=== PATIENT | female | born 1970 | race Caucasian/White ===

== ENCOUNTER → 2020-12-02 | Outpatient (CLI) | payer BC ==
--- NOTE | 2020-12-02 13:31 | MM ---
Reason for exam: clinical finding. Last mammogram was performed 5 years and 8 months ago. History: Family history of breast cancer in mother at age 68. Indicated problem(s): lump or thickening in the right breast. Physical Findings: Nurse Summary: 1cm nodule in the left breast at 9 o'clock (nurse mj). [facility] Diagnostic Mammo w CAD [facility]IS Bilateral CC and MLO view(s) were taken. Prior study comparison: March 24, 2015, bilateral MG diagnostic mammo w CAD CHRIS. September 02, 2012, mammogram, performed at [facility]. The breast tissue is heterogeneously dense. This may lower the sensitivity of mammography. Left palpable marker at 9 o'clock. No significant new findings when compared with previous films. These results were verbally communicated with the patient and result sheet given to the patient on 12/02/20. ASSESSMENT: Incomplete: need additional imaging evaluation, BI-RAD 0 RECOMMENDATION: Ultrasound of both breasts. (right 12 o'clock patient palpated, left 9 o'clock nurse palpated)
--- NOTE | 2020-12-02 13:37 | USB ---
Reason for exam: additional evaluation requested from abnormal screening. History: Family history of breast cancer in mother at age 68. US Breast Limited BILAT Right limited breast ultrasound including focal area of concern, retroareolar and axilla demonstrates right dense tissue seen, duct ectasia at the posterior nipple and a 1.0 x 1.1 x 0.9cm lymph node at the axilla. Left limited breast ultrasound including focal area of concern, retroareolar and axilla demonstrates a 0.5 x 0.4 x 0.5cm oval, solid, hyperechoic lesion at 9 o'clock, suggestive of a benign lipoma. Right scanned 11-1 o'clock. Left scanned 9 o'clock nurse palpated area. These results were verbally communicated with the patient and result sheet given to the patient on 12/02/20. ASSESSMENT: Benign, BI-RAD 2 RECOMMENDATION: Routine screening mammogram of both breasts in 1 year. Manage on a clinical basis with regard to any suspicious palpable abnormality.
== END | disposition home or self-care (01) ==
LOC: RADMAMWWP 09:36
PROVIDERS: ATTEND Family Medicine
DX: N63.10 Unspecified lump in the right breast, unspecified quadrant (principal); N63.20 Unspecified lump in the left breast, unspecified quadrant; R92.8 Other abnormal and inconclusive findings on diagnostic imaging of breast
CPT/HCPCS: 77066

== ENCOUNTER → 2023-06-26 | Outpatient (CLI) | payer BC ==
--- NOTE | 2023-06-27 15:49 | MM ---
Reason for Exam: Screening (asymptomatic). Last mammogram was performed 2 year(s) and 7 month(s) ago. Patient History: Menarche at age 11. First Full-Term at age 25. Postmenopausal. Mother had breast cancer, age 68. Risk Values: Ashlie 5 year model risk: 2.2%. NCI Lifetime model risk: 15.8%. Prior Study Comparison: 09/02/2012 Screening Mammogram, [facility]. 03/24/2015 Bilateral Diagnostic Mammogram, [facility]. 12/02/2020 Bilateral Diagnostic Mammogram, [facility]. Tissue Density: The breast tissue is extremely dense which could obscure a lesion on mammography. Findings: Analyzed By CAD. Pattern appears stable. No significant interval change is evident. No suspicious groups of microcalcifications, spiculated or lobular masses, architectural distortion or other secondary signs of malignancy are mammographically apparent. Overall Assessment: Benign, BI-RAD 2 Management: Screening Mammogram of both breasts in 1 year. A negative mammogram report should not preclude additional follow up of suspicious palpable abnormalities. Patient should continue monthly self breast exam. A clinical breast exam by your physician is recommended on an annual basis and results should be correlated with mammographic findings. Electronically signed and approved by: Nick Guillory D.O. Radiologis
== END | disposition home or self-care (01) ==
LOC: RADMAMWWP 12:54
PROVIDERS: ATTEND Family Medicine
DX: Z12.31 Encounter for screening mammogram for malignant neoplasm of breast (principal); Z80.3 Family history of malignant neoplasm of breast; Z78.0 Asymptomatic menopausal state
CPT/HCPCS: 77067